=== PATIENT | male | born 1985 | race Caucasian/White ===

== ENCOUNTER 2020-09-23 00:23 | Emergency (ER) | payer OTHER ==
[~2020-09-23] VITALS: Ht 177.8 cm; Wt 89.1 kg
[2020-09-23 00:32] VITALS: BP 130/89
--- NOTE | 2020-09-23 00:49 | NUR ---
CC OF RIGHT SIDE THROAT SWELLING AND RIGHT EAR PAIN WITH DIFFICULTY SWALLOWING. PT STATES SYMPTOMS CAME ON QUICKLY HE WAS EATING [employer] FROM [place]. PT CLAIMS HE HAS NKDA. 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 SWELLING NOTED AND PALPATED TO RIGHT NECK
[2020-09-23] MEDS ORDERED: DEXAMETHASONE 4 MG TABLET PO ONE (01:00)
[2020-09-23] MEDS ORDERED: DEXAMETHASONE 4 MG TABLET ONE (01:06)
== END 2020-09-23 02:15 | disposition home or self-care (01) ==
LOC: ED 01:20
DX: J03.90 Acute tonsillitis, unspecified (principal)
CPT/HCPCS: 87081; 87880; 99283; 99285